=== PATIENT | male | born 1980 | race African-American/Black ===

== ENCOUNTER 2020-01-31 22:23 | Inpatient (IN) | payer SELFPAY ==
--- NOTE | ~2020-01-31 | XR_ITS ---
EXAMINATION: XR chest 1V portable EXAM DATE: 01/31/2020 23:39 INDICATION: Transient alteration of awareness. TECHNIQUE: Portable AP frontal chest x-ray was obtained. There is no prior study for comparison. FINDINGS: The lungs are clear. There are no pleural effusions. Cardiac silhouette is prominent but magnified on this AP technique. There is no pneumothorax suspected. The bones and soft tissues are unremarkable. IMPRESSION: No acute cardiopulmonary findings. Reviewed, dictated and finalized at location A.
--- NOTE | ~2020-01-31 | XR_ITS ---
EXAMINATION: XR abdomen NG/feed tube insert DATE: 02/01/2020 02:16 INDICATION: Nasogastric tube placement. TECHNIQUE: A supine view of the abdomen on 2 radiographs was obtained. COMPARISON: None. FINDINGS: There are no dilated loops of bowel. The nasogastric tube tip is in the stomach. IMPRESSION: 1. Nasogastric tube tip in the stomach. Reviewed, dictated and finalized at location A.
--- NOTE | ~2020-01-31 | CT_ITS ---
EXAMINATION: CT brain wo con DATE: 02/01/2020 00:36 INDICATION: Altered mental status. TECHNIQUE: Computed tomography (CT) of the head was performed without intravenous contrast. The mA wa s adjusted according to patient size. Iterative reconstruction technique was employed. The dose-lengt h product was 605.33 mGy-cm. COMPARISON: None FINDINGS: There is no intracranial hemorrhage, acute infarction, or abnormal intracranial mass lesion . The ventricles are normal in size. There is anteroposterior elongation of left ocular globe. There are likely changes of ocular lens replacement surgeries. There is mild mucosal thickening in the para nasal sinuses. The mastoid air cells are normal. IMPRESSION: 1. Normal brain. Reviewed, dictated and finalized at location A. IMPRESSION: 1. Normal brain.
--- NOTE | ~2020-01-31 | XR_ITS ---
EXAMINATION: XR chest ET placement DATE: 02/01/2020 01:27 INDICATION: Intubation. TECHNIQUE: A single frontal view of the chest was obtained. COMPARISON: Chest single view 01/31/2020 FINDINGS: The chest demonstrates clear lungs without pneumonia, pleural effusion, or pneumothorax. Th e heart size is normal. The endotracheal tube tip is 1.9 cm above the nehemiah. IMPRESSION: 1. No acute cardiopulmonary disease. Reviewed, dictated and finalized at location A.
[2020-01-31 22:18] VITALS: BP 119/54; PULSE 143; RESP 21; TEMP 36.6; O2SAT 75
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
[2020-01-31 22:37] VITALS: BP 119/54; PULSE 119; RESP 20; O2SAT 97
--- NOTE | 2020-01-31 22:48 | ECG_ITS ---
Measurements Intervals [place] Rate: 113 P: 69 MI: 195 QRS: 70 QRSD: 102 T: 58 QT: 334 QTc: 459 Interpretive Statements SINUS TACHYCARDIA FREQUENT VENTRICULAR PREMATURE COMPLEXES ABNORMAL ECG Electronically Signed On 02-01-2020 7:12:28 CDT by Martir Voss D.O.
[2020-01-31 23:07] LABS: Basophils Absolute Auto 0.1 K/mm3 (0.0-0.1); Basophils Percent Auto 0.4 % (0.2-1.2); Eosinophils Absolute Auto 0.1 K/mm3 (0-0.3); Eosinophils Percent Auto 0.6 % (0-4.4); Hematocrit 42.1 % (42.0-52.0); Hemoglobin 13.4 g/dL (14.0-18.0); Immature Granulocyte Absolute 0.06 K/mm3 (0.00-0.031); Immature Granulocyte Percent A 0.4 % (0-0.5); Lymphocytes Absolute Auto 3.76 K/mm3 (0.9-3.2); Lymphocytes Percent Auto 26.9 % (18.3-44.2); Mean Corpuscular HGB Conc 31.8 g/dl (32-36); Mean Corpuscular Hemoglobin 34.2 pg (26-34); Mean Corpuscular Volume 107.4 fl (80-100); Mean Platelet Volume 9.5 fl (7.4-10.4); Monocytes Absolute Auto 1.1 K/mm3 (0.1-0.6); Neutrophils Absolute Auto 8.9 K/mm3 (1.3-6.7); Neutrophils Percent Auto 63.7 % (45.5-73.1); Platelet Count Result 270 k/mm3 (150-375); Red Blood Count 3.92 M/mm3 (4.6-6.20); Red Cell Distribution Width 11.8 % (11.5-14.5)
[2020-01-31] MEDS: SODIUM CHLORIDE 0.9% IV 1,000 ML 999 ML IV CONT (23:10)
[2020-01-31] MEDS: LORAZEPAM INJ 2 MG/ML VIAL 1 MG IV PUSH ×2 (23:11→23:37)
--- NOTE | 2020-01-31 23:13 | PC.NURSE ---
Attempted to go to CT with patient, patient was resting on the bed. As soon as stretcher entered the hallway, patient jumped up, and started to violently thrash again. PD still at bedside, PD assisting with patient. Patient uncooperative. Patient brought back into the room.
[2020-01-31 23:21] LABS: Alveolar/Arterial O2 Gradient 402.8 mmHg; Base Excess ABG -5.2 mEq/l (+/-2.0); Fractional Inspired Oxygen 80 %; HCO3 ABG 23.5 mEq/l (22.0-26.0); Oxygen Content ABG 18.7 %vol (16.0-22.0); Oxygen Saturation ABG 96.7 % (95.0-100.0); Oxyhemoglobin 92.2 % THb (90.0-100.0); PCO2 ABG 59.1 mmHg (35.0-45.0); PO2 ABG 105.6 mmHg (80.0-100.0); PO2 FiO2 Ratio Arterial Blood 1.32 %; Total Hemoglobin 14.3 g/dL (12.0-18.0)
[2020-01-31 23:22] LABS: pH ABG 7.217 (7.350-7.450)
[2020-01-31 23:23] LABS: Device SIMPLE MASK; Modified Allen's Test Pass; Site Drawn LEFT RADIAL
[2020-01-31 23:27] LABS: Alanine Aminotransferase 18 U/L (4-50); Albumin Level 4.5 g/dL (3.5-5.1); Alkaline Phosphatase 58 U/L (38-126); Aspartate Amino Transferase 36 U/L (17-59); Bilirubin,Total 0.5 mg/dL (0.2-1.3); Blood Urea Nitrogen 14 mg/dL (9-20); Calcium 9.3 mg/dL (8.4-10.2); Carbon Dioxide 23 mmol/L (22-30); Chloride 107 mmol/L (98-107); Creatine Kinase 276 U/L (55-170); Estimated Glomerular Filt Rate 59; Glucose 151 mg/dL (75-110); Potassium 3.7 mmol/L (3.4-5.0); Sodium 143 mmol/L (137-145)
[2020-01-31 23:37] LABS: Acetaminophen < 10 ug/mL (10-30); Ethanol < 10 mg/dL (<10); Magnesium 1.9 mg/dL (1.6-2.3); Salicylate < 1.0 mg/dL (2-20)
[2020-01-31 23:44] LABS: Glucose Point of Care 165 (65-105)
[2020-01-31 23:50] VITALS: PULSE 113; RESP 12; O2SAT 98
[2020-02-01] VITALS (30 sets, daily range): BP systolic 85–125; BP diastolic 51–83; PULSE 50–156; RESP 11–20; TEMP 36.4–36.9; O2SAT 92–100; BMI 29.2
[2020-02-01 00:13] LABS: Amphetamine Screen Urine Negative (Negative); Barbiturate Screen Urine Negative (Negative); Benzodiazepines Screen Urine Negative (Negative); Cannabinoid Screen Urine Negative (Negative); Cocaine Screen Urine Negative (Negative); Methadone Screen Urine Negative (Negative); Opiate Screen Urine Negative (Negative); Phencyclidine Screen Urine Negative (Negative)
[2020-02-01 00:15] LABS: Add Urine Microscopic? YES; Appearance Urine Clear (Clear); Bacteria Urine Trace /hpf; Bilirubin Urine Negative (Negative); Blood Urine Negative (Negative); Color Urine Yellow (Yellow); Glucose Urine UA Negative (Negative); Ketones Urine Negative (Negative); Leukocyte Esterase Ur Negative LEU/UL (Negative); Mucus Urine Heavy /lpf; Nitrate Urine Negative (Negative); Protein Urine 2+ mg/dL (Negative); RBC Urine 0-2 /hpf (0-2); Specific Grav Ur 1.028 (1.001-1.035); Squamous Epithelial Cell Urine Occasional /hpf (Few)
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
[2020-02-01] MEDS: levETIRAcetam 1000MG/NACL100ML 1,000 MG/100 ML BAG 400 MG IVPB (00:41)
[2020-02-01] MEDS: SODIUM CHLORIDE 0.9% IV 1,000 ML 999 ML IV CONT (00:42)
[2020-02-01 01:04] LABS: Alveolar/Arterial O2 Gradient 176.4 mmHg; Base Excess ABG -2.7 mEq/l (+/-2.0); Fractional Inspired Oxygen 46 %; Oxygen Content ABG 17.1 %vol (16.0-22.0); Oxygen Saturation ABG 93.4 % (95.0-100.0); Oxyhemoglobin 90.2 % THb (90.0-100.0); PO2 ABG 80.2 mmHg (80.0-100.0); PO2 FiO2 Ratio Arterial Blood 1.74 %; Total Hemoglobin 13.4 g/dL (12.0-18.0)
--- NOTE | 2020-02-01 01:05 | PC.NURSE ---
EDP states he will intubate patient. Respiratory at bedside. 09120xt of Etomidate given IVP. 0112 100mg of Succ.s given IVP. 0113 Patient intubated with an 8 tube by EDP secured at 26 at the lip. Verified by positive color change and chest rise and fall. Chest xray ordered as well. 0115 VORB per EDP. start diprovan drip at 5ml/hr.
[2020-02-01 01:27] LABS: Modified Allen's Test Unable to perform; PCO2 ABG 62.9 mmHg (35.0-45.0); Site Drawn LEFT RADIAL; pH ABG 7.234 (7.350-7.450)
[2020-02-01 01:28] LABS: Device NASAL CANNULA
[2020-02-01] MEDS: PROPOFOL IV EMULSION 100 ML 5 MG IV CONT (01:30)
--- NOTE | 2020-02-01 02:10 | PC.NURSE ---
This patient, Juarez Cueto, was admitted to Intensive Care Unit-8. Patient/family oriented to hospital policies and general routines including ID bracelet, bed and alarms, visiting hours, pain management, procedures, bathroom and other care routines, personal items, smoking policy, room service/diet, and visiting hours. Valuables list has been completed. Information on how to activate the Rapid Response Team has been discussed. Patient/Family are encouraged to report perceived risks to care and to ask questions if they do not understand what they are told or what they should do.
--- NOTE | 2020-02-01 02:15 | PC.NURSE ---
Patient was transferred to the [facility], ICU room 8, by this RN and another RN as well as respiratory. Patient was transferred in hard violent restraints per request of EDP . Patient was released from locked restraints and transferred to the other stretcher. The nurses taking report placed patient in soft restraints.
--- NOTE | 2020-02-01 02:33 | PCRCNOTE ---
PT TRANSPORTED FROM ED TO ICU 8 VIA BVM/ETT. NO ADVERSE EVENTS NOTED. PLACED BACK ON VENT WITH ORDERED SETTINGS. SEE VENT DOCUMENTATION
[2020-02-01] MEDS: SODIUM CHLORIDE 0.9% IV 1,000 ML 125 ML IV CONT ×2 (02:55→08:32)
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
[2020-02-01] MEDS: MIDAZOLAM HCL 50 MG in DEXTROSE 5% 90 ML IV CONT (03:12)
[2020-02-01 04:40] LABS: Alveolar/Arterial O2 Gradient 168.5 mmHg; Base Excess ABG -3.2 mEq/l (+/-2.0); Fractional Inspired Oxygen 50 %; HCO3 ABG 23.8 mEq/l (22.0-26.0); Oxygen Content ABG 18.1 %vol (16.0-22.0); Oxygen Saturation ABG 98.3 % (95.0-100.0); Oxyhemoglobin 96.5 % THb (90.0-100.0); PCO2 ABG 50.8 mmHg (35.0-45.0); PO2 ABG 130.9 mmHg (80.0-100.0); PO2 FiO2 Ratio Arterial Blood 2.62 %; Total Hemoglobin 13.2 g/dL (12.0-18.0)
[2020-02-01 04:41] LABS: pH ABG 7.289 (7.350-7.450)
[2020-02-01 04:42] LABS: Device VENTILATOR; Modified Allen's Test Pass; Site Drawn LEFT RADIAL
[2020-02-01 04:43] LABS: Arterial Blood Gas PEEP 5 cmH2O; Arterial Blood Gas Tidal Volume 380 ml; Arterial Blood Gas Vent Mode CMV; Arterial Blood Gas Ventilator rate 20 /MIN
[2020-02-01 04:56] LABS: Hemoglobin A1C 4.6 % (<5.7)
[2020-02-01 05:00] LABS: Magnesium 1.8 mg/dL (1.6-2.3); Phosphorus 4.5 mg/dL (2.5-4.5)
[2020-02-01] MEDS: PROPOFOL IV EMULSION 100 ML 28.5 MG IV CONT ×2 (05:25→07:13)
[2020-02-01 05:28] LABS: Blood Urea Nitrogen 14 mg/dL (9-20); Calcium 8.5 mg/dL (8.4-10.2); Carbon Dioxide 24 mmol/L (22-30); Chloride 111 mmol/L (98-107); Estimated CRCL calculation 73 ml/min; Estimated Glomerular Filt Rate > 60; Glucose 83 mg/dL (75-110); Magnesium 1.7 mg/dL (1.6-2.3); Potassium 4.2 mmol/L (3.4-5.0); Sodium 141 mmol/L (137-145)
[2020-02-01 05:35] LABS: Basophils Absolute Auto 0.1 K/mm3 (0.0-0.1); Basophils Percent Auto 0.2 % (0.2-1.2); Eosinophils Percent Auto 0.1 % (0-4.4); Hematocrit 37.8 % (42.0-52.0); Hemoglobin 12.2 g/dL (14.0-18.0); Immature Granulocyte Absolute 0.15 K/mm3 (0.00-0.031); Immature Granulocyte Percent A 0.6 % (0-0.5); Lymphocytes Absolute Auto 2.24 K/mm3 (0.9-3.2); Lymphocytes Percent Auto 9.3 % (18.3-44.2); Mean Corpuscular HGB Conc 32.3 g/dl (32-36); Mean Corpuscular Hemoglobin 34.1 pg (26-34); Mean Corpuscular Volume 105.6 fl (80-100); Mean Platelet Volume 10.1 fl (7.4-10.4); Monocytes Absolute Auto 1.5 K/mm3 (0.1-0.6); Monocytes Percent Auto 6.4 % (2.6-8.5); Neutrophils Absolute Auto 20.2 K/mm3 (1.3-6.7); Neutrophils Percent Auto 83.4 % (45.5-73.1); Platelet Count Result 232 k/mm3 (150-375); Red Blood Count 3.58 M/mm3 (4.6-6.20); Red Cell Distribution Width 11.8 % (11.5-14.5); White Blood Count 24.2 K/mm3 (4.5-10.0)
[2020-02-01 06:35] LABS: Folic Acid 18.7 ng/mL (2.76->20)
[2020-02-01 07:02] LABS: Free T4 Free Thyroxine Reflex 0.77 ng/dL (0.78-2.19)
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
--- NOTE | 2020-02-01 11:06 | PM.IMPN ---
Progress Note: A&P Assessment and Plan (1) Encephalopathy acute: Code(s): G93.40 - Encephalopathy, unspecified Status: Acute Assessment and Plan: Etiology unclear: withdrawal vs atypical seizure Psychosis possible with respiratory failure possible due to meds Levetiracetam begun 01/30 Continue to support and wean as possible (2) Acute hypercapnic respiratory failure: Code(s): J96.02 - Acute respiratory failure with hypercapnia Status: Acute Assessment and Plan: Due to underlying medical condition vs medication Continue to support on vent and wean as possible (3) Hyperglycemia: Code(s): R73.9 - Hyperglycemia, unspecified Status: Acute Assessment and Plan: Stress, steroids Initiate SSI if glucose continues to rise (4) Hypothyroidism: Qualifiers: Hypothyroidism type: unspecified Qualified Code(s): E03.9 - Hypothyroidism, unspecified Code(s): E03.9 - Hypothyroidism, unspecified Status: Acute Assessment and Plan: TSH 8.8, FT4 0.77 Early hypothyroidism vs sick euthyroid No intervention required Will need f/u once (5) Leukocytosis: Qualifiers: Leukocytosis type: unspecified Qualified Code(s): D72.829 - Elevated white blood cell count, unspecified Code(s): D72.829 - Elevated white blood cell count, unspecified Status: Acute Assessment and Plan: Likely demargination F/u lab Subjective Date/time seen: 02/01/20 11:06 Interval history: Admitted January 30 due to abnormal behaviors and confusion. Sedated and ventilated. Review of Systems Review of Systems: ROS unobtainable: Yes unobtainable due to endotracheal tube Exam Narrative: Exam Narrative: HEENT: Pupils small and sluggish. Sclerae nonicteric, pharyngeal mucosa pink and intact NECK: No JVD CHEST: Clear to auscultation. HEART: NL S1/S2, regular, no murmur ABDOMEN: BS+, soft, nontender, no mass, no bruits EXTREMITIES: No cyanosis, edema, or clubbing NEUROLOGIC: CN intact and symmetric to inspection. MUSCULOSKELETAL: Tone and strength symmetric. PSYCH: Sedated Objective Data Vital Signs Vital Signs: Vital Signs - 24 hr 01/31/20 22:18 01/31/20 22:37 01/31/20 23:50 Temperature 97.9 F Pulse Rate 143 H 119 H 113 H Respiratory Rate 21 H 20 12 Blood Pressure 119/54 L 119/54 L Pulse Oximetry 75 L 97 98 02/01/20 00:00 02/01/20 00:41 02/01/20 00:45 Temperature Pulse Rate 116 H 124 H 156 H Respiratory Rate 11 L 15 16 Blood Pressure Pulse Oximetry 98 94 02/01/20 01:10 02/01/20 01:54 02/01/20 02:07 Temperature 97.8 F 97.8 F Pulse Rate 99 103 H 99 Respiratory Rate 15 15 Blood Pressure 91/51 L 96/56 L Pulse Oximetry 100 100 100 02/01/20 02:11 02/01/20 02:15 02/01/20 02:20 Temperature 97.6 F Pulse Rate 99 97 94 Respiratory Rate 20 16 Blood Pressure 99/54 L 98/60 L Pulse Oximetry 99 99 02/01/20 02:36 02/01/20 04:00 02/01/20 04:45 Temperature 98.1 F Pulse Rate 95 90 90 Respiratory Rate 20 Blood Pressure 113/80 Pulse Oximetry 99 98 98 02/01/20 06:00 02/01/20 08:00 Temperature 98 F Pulse Rate 78 70 Respiratory Rate 16 Blood Pressure 92/56 L 86/55 L Pulse Oximetry 94 96 Intake/Output Intake/Output: Intake & Output 01/29/20 01/30/20 01/31/20 02/01/20 23:59 23:59 23:59 23:59 Intake Total 3334 Output Total 200 550 Balance -200 2784 Meds/Results Medications: Active Medications Generic Name Dose Route Start Last Admin Trade Name Freq PRN Reason Stop Dose Admin Sodium Chloride 1,000 mls @ 125 mls/hr 02/01/20 01:00 02/01/20 08:32 Normal Saline Iv IV CONT 125 mls/hr .Q8H LIZZY Administration Levetiracetam 500 mg in 100 mls @ 400 mls/hr 02/01/20 13:00 Keppra Iv IVPB Q12HR LIZZY Midazolam HCl 50 mg/ Dextrose 100 mls @ 6 mls/hr 02/01/20 02:50 02/01/20 05:27 IV CONT 3 mg/hr .[id number] LIZZY 6 mls/hr Titration Protocol
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
[2020-02-01] MEDS: PROPOFOL IV EMULSION 100 ML 22.8 MG IV CONT (11:14)
[2020-02-01] MEDS: levETIRAcetam 500MG/NACL 100ML 500 MG/100 ML BAG 200 MG IVPB (12:40)
[2020-02-01] MEDS: methylPREDNISolone SOD SUCC 125 MG VIAL 80 MG IV PUSH ×2 (12:41→23:24)
--- NOTE | 2020-02-01 13:17 | PC.NURSE ---
Dr. Monet in room, pt following most of doctor's requests, pt extubated at this time, placed on nasal canula
--- NOTE | 2020-02-01 13:18 | PM.EVENT ---
Event Note Event Note Event Note: Sedation holiday was done. Patient was following commands and moving all extremity patient was transiently placed on pressure support. Patient was fighting the ventilator and getting agitated. His ventilator requirements are minimal and chest x-ray was unremarkable this morning. Most of his agitation appear to be secondary to being intubated. We decided to extubate the patient at that time. Patient extubated and placed on nasal cannula, off sedation and is saturating well on nasal cannula at this time. Continue monitor closely. Patient is following commands and answering questions although he is still drowsy likely from the sedatives.
[2020-02-01] MEDS: IPRATROPIUM BR 0.02% INH SOLN 0.5 MG/2.5 ML VIAL INHALATION (13:46)
[2020-02-01] MEDS: ALBUTEROL SULFATE NEB 2.5 MG/0.5 ML INH INHALATION ×2 (13:46→19:50)
[2020-02-01] MEDS: SODIUM CHLORIDE 0.45% 1,000 ML 75 ML IV CONT (17:59)
[2020-02-01] MEDS: FAMOTIDINE 20 MG TABLET PO (21:28)
--- NOTE | 2020-02-01 21:41 | PM.DS ---
DS: Diagnosis Admitting Diagnosis Admitting Diagnosis: Acute respiratory failure with hypercapnia DS: Summary Hospital Course Reason for hospitalization: seizure Hospital Course: Admitted 01/30, discharged 02/02/20. he was last seen normal when he showed up to work at [employer] around 6 p.m on 01/30. Later on during 15 minutes break, he was eventually found splashing water on his face and punching the floor around 9:15 p.m. Police arrived to the scene, subdued the patient. He was doing the same thing when arrived to the scene. In the emergency room, he received 5 mg of Haldol at 0954 and 5 mg of Valium at 0955, and was being restrained by the police and EMS. Other information was unavailable. Subsequently, the physician was informed by the nursing staff that he does not have any history of seizure, but is a chronic heroin abuser. He recevied IV Keppra 1,000mg then 500mg every 12 hours. He required intubatio and was extubated 01/31 in the afternoon. He remained alert and oriented and did admit to a hx of seizures. He was concerned about medication cost as his insurance would not be active for another 2 months. However, we found generic Keppra at [facility] for $9 per month. Time Spent with Patient Time attestation: Total time spent providing and/or coordinating discharge services: 35 min Exam Narrative: Exam Narrative: HEENT: EOMI, PERRL, pharyngeal mucosa pink and intact NECK: No JVD CHEST: Clear to auscultation. Normal effort. HEART: NL S1/S2, regular, no murmur ABDOMEN: BS+, soft, nontender, no mass, no bruits EXTREMITIES: No cyanosis, edema, or clubbing NEUROLOGIC: CN intact and symmetric to inspection. MUSCULOSKELETAL: Tone and strength symmetric. PSYCH: Alert. Oriented to person, place, and time. DS: Data Data Completed and Pending Labs on day of discharge: Labs from last 24 hours 02/01/20 02/01/20 02/01/20 04:31 04:26 04:26 WBC RBC Hgb Hct MCV MCH MCHC RDW Plt Count MPV Immature Gran % (Auto) Neut % (Auto) Lymph % (Auto) [place] % (Auto) Eos % (Auto) Baso % (Auto) Lymph # (Auto) [place] # (Auto) Eos # (Auto) Baso # (Auto) Abs Immat Gran (auto) Absolute Neuts (auto) Absolute Nucleated RBC Nucleated RBC % Puncture Site Left radial ABG pH 7.289 L* ABG pCO2 50.8 H ABG pO2 130.9 H ABG PO2/FiO2 Ratio 2.62 ABG HCO3 23.8 ABG O2 Saturation 98.3 ABG O2 Content 18.1 ABG Base Excess -3.2 A-a Gradient 168.5 Oxyhemoglobin 96.5 Total Hemoglobin 13.2 O2 Delivery Device Ventilator O2 Liters/Min Not Reportable Minute Volume Not Reportable Vent Rate 20 Vent Mode Cmv FiO2 50 Tidal Volume 380 PEEP 5 Peak Inspir Pressure Not Reportable Pressure Support Not Reportable Sodium Potassium Chloride Carbon Dioxide BUN Creatinine Estim Creat Clear Calc Estimated GFR Glucose POC Capillary Glucose Hemoglobin A1c Calcium Phosphorus Magnesium Total Bilirubin AST ALT Alkaline Phosphatase Total Creatine Kinase Total Protein Albumin Vitamin B12 Folate TSH (Reflex) 8.800 H Free T4 0.77 L Free T3 Urine Color Urine Appearance Urine pH Ur Specific [place] Urine Protein Urine Glucose (UA) Urine Ketones Ur Blood (Man) Urine Nitrate Urine Bilirubin Urine Urobilinogen Leukocyte Esterase Rfl Urine RBC Urine WBC Ur Squamous Epith Cells Urine Bacteria Hyaline Casts Urine Mucus Salicylates Urine Opiates Screen Urine Methadone Screen Acetaminophen Ur Barbiturates Screen Ur Phencyclidine Scrn Ur Amphetamine Screen U Benzodiazepines Scrn Urine Cocaine Screen U Cannabinoids Screen Ethyl Alcohol 02/01/20 02/01/20 02/01/20 04:26 04:26 04:17 WBC RBC Hgb Hct MCV MCH MCHC RDW Plt Count
[2020-02-01] MEDS: levETIRAcetam 500MG/NACL 100ML 500 MG/100 ML BAG 400 MG IVPB (23:25)
[2020-02-02] VITALS (9 sets, daily range): BP systolic 113–144; BP diastolic 70–84; PULSE 67–84; RESP 16–20; TEMP 36.4–37; O2SAT 95–98
[2020-02-02] MEDS: ALBUTEROL SULFATE NEB 2.5 MG/0.5 ML INH INHALATION ×2 (01:29→08:37)
--- NOTE | 2020-02-02 02:46 | PC.NURSE ---
02/01/20 AT 1930, PATIENT WANTING TO SIGN OUT AMA. DR DÍAZ NOTIFIED BY AUNDREA Rodrigues RN. PATIENT SPOKE TO HIS MOTHER ON THE PHONE AND HAS AGREED TO STAY UNTIL THE MORNING. STILL VERY UPSET OVER HIS PANTS BEING CUT OFF IN THE ER. QIESTIONED WHAT HAPPENED TO HIM. I ADVISED HIM THAT HE MIGHT OF HAD A SEIZURE WHEN FOUND AT WORK. PATIENT STATES HE HAS HAD 3 SEIZURES IN THE PAST YEARS. TEACHING DONE REGARDING CURRENT CARE PLAN. WILL CONTINUE TO FOLLOW.
[2020-02-02 04:49] LABS: Basophils Percent Auto 0.1 % (0.2-1.2); Hematocrit 39.6 % (42.0-52.0); Hemoglobin 12.7 g/dL (14.0-18.0); Immature Granulocyte Absolute 0.04 K/mm3 (0.00-0.031); Immature Granulocyte Percent A 0.3 % (0-0.5); Lymphocytes Absolute Auto 0.84 K/mm3 (0.9-3.2); Lymphocytes Percent Auto 6.6 % (18.3-44.2); Mean Corpuscular HGB Conc 32.1 g/dl (32-36); Mean Corpuscular Hemoglobin 34.1 pg (26-34); Mean Corpuscular Volume 106.5 fl (80-100); Mean Platelet Volume 9.8 fl (7.4-10.4); Monocytes Absolute Auto 0.1 K/mm3 (0.1-0.6); Monocytes Percent Auto 0.6 % (2.6-8.5); Neutrophils Absolute Auto 11.8 K/mm3 (1.3-6.7); Neutrophils Percent Auto 92.4 % (45.5-73.1); Platelet Count Result 213 k/mm3 (150-375); Red Blood Count 3.72 M/mm3 (4.6-6.20); Red Cell Distribution Width 11.6 % (11.5-14.5); White Blood Count 12.7 K/mm3 (4.5-10.0)
[2020-02-02 05:09] LABS: Alanine Aminotransferase 25 U/L (4-50); Albumin Level 4.1 g/dL (3.5-5.1); Alkaline Phosphatase 79 U/L (38-126); Aspartate Amino Transferase 84 U/L (17-59); Bilirubin,Total 0.4 mg/dL (0.2-1.3); Blood Urea Nitrogen 13 mg/dL (9-20); Calcium 9.2 mg/dL (8.4-10.2); Carbon Dioxide 23 mmol/L (22-30); Chloride 108 mmol/L (98-107); Estimated CRCL calculation 93 ml/min; Estimated Glomerular Filt Rate > 60; Glucose 109 mg/dL (75-110); Potassium 4.4 mmol/L (3.4-5.0); Sodium 139 mmol/L (137-145)
--- NOTE | 2020-02-02 07:45 | WPDINTPN ---
Progress Note: A&P Assessment and Plan (1) Acute hypercapnic respiratory failure: Code(s): J96.02 - Acute respiratory failure with hypercapnia Status: Acute Assessment and Plan: chest x-ray done today reviewed and shows No acute cardiopulmonary disease. Acute Respiratory failure secondary to encephalopathy improved and patient extubated yesterday. He he has been satting well on room air. Continue full mechanical ventilation support to prevent hypoxemia/hypercarbia and end organ damage. Continue Bronchodilators (2) Acute encephalopathy: Code(s): G93.40 - Encephalopathy, unspecified Status: Acute Assessment and Plan: Head CT negative at presentation ? secondary to heroin use versus seizure TSH elevated neurology consulted patient now alert and awake (3) Leukocytosis: Qualifiers: Leukocytosis type: unspecified Qualified Code(s): D72.829 - Elevated white blood cell count, unspecified Code(s): D72.829 - Elevated white blood cell count, unspecified Status: Acute Assessment and Plan: most likely stress response patient is afebrile levels are close to normal (4) Acute renal insufficiency: Code(s): N28.9 - Disorder of kidney and ureter, unspecified Status: Acute Assessment and Plan: creatinine has normalized with IV fluids (5) Hyperglycemia: Code(s): R73.9 - Hyperglycemia, unspecified Status: Acute Assessment and Plan: patient does not have history of diabetes monitor and treat as needed with sliding scale check HbA1c (6) Hypothyroidism: Qualifiers: Hypothyroidism type: unspecified Qualified Code(s): E03.9 - Hypothyroidism, unspecified Code(s): E03.9 - Hypothyroidism, unspecified Status: Acute Assessment and Plan: patient has elevated TSH and low free T4 pending free T3 level will discuss with Internal Medicine physician before initiating levothyroxine DVT prophylaxis - Lovenox Stress ulcer prophylaxis - Pepcid Nutrition - regular diet Code Status - Full Code patient will be transferred out of ICU today and he may leave against medical advice. Subjective Date/time seen: 02/02/20 0745 Yesterday patient was extubated after a sedation holiday. Was following commands on all 4 extremities and was not tolerating spontaneous breathing trial due to agitation and uncooperation. Patient did well overnight. He has been saturating well on room air. Apart from that patient has again been non cooperative with nursing staff and basically threatening to leave against medical advice all night. States that he is going to lose his job and he cannot stay in the hospital. He is aware that he may have seizure but he told me that his father had seizures 3 times a day and he did fine. And he does not want to stay in the hospital anymore. He is worried about losing his job. Overnight. Fonseca was removed due to patient's request which was appropriate. Patient is tolerating regular diet and IV fluids were discontinued. Patient otherwise denies any complaints he feels fine and and would like to go home. He answers no to everything each and every question when inquired about review of systems. He told me that he was in the class yesterday and his friends laughing at him for asking stupid questions. he does not remember what exactly happened and why he came to the hospital. He told me that he has history of seizure disorder but often does not admitted on the forms for job or school. He used to be on some medication the name of which he is unaware of but quit taking it a long time ago. He absolutely denied using any drugs to me prior to this incident Review of Systems Review of Systems: ROS unobtainable: Yes unobtainable due to mental status ( patient has no to all questions) Exam Narrative: Exam Narrative: General: Pt is alert awake and in NAD Lungs/Chest: Tra
[2020-02-02] MEDS: IPRATROPIUM BR 0.02% INH SOLN 0.5 MG/2.5 ML VIAL INHALATION (08:37)
--- NOTE | 2020-02-02 09:17 | PC.NURSE ---
pt discharged to home at 910 am, discharge instructions explained and signed
[2020-02-02 12:24] LABS: Triiodothyronine T3 Free 3.4 pg/mL (2.3-4.2)
== END 2020-02-02 09:10 | disposition home or self-care (01) | DRG 773 ==
LOC: ANHED 02-01 01:01 → ANHICU 02-01 01:09
PROVIDERS: Internal Medicine; Admitting Provider Family Medicine; Emergency Provider Emergency Medicine; Visit Provider Internal Medicine
DX: F11.23 Opioid dependence with withdrawal (principal); G40.909 Epilepsy, unspecified, not intractable, without status epilepticus; J96.02 Acute respiratory failure with hypercapnia; J45.909 Unspecified asthma, uncomplicated; F11.10 Opioid abuse, uncomplicated; G93.40 Encephalopathy, unspecified; R73.9 Hyperglycemia, unspecified; E03.9 Hypothyroidism, unspecified; D72.829 Elevated white blood cell count, unspecified; N28.9 Disorder of kidney and ureter, unspecified; F17.210 Nicotine dependence, cigarettes, uncomplicated; Z78.1 Physical restraint status
CPT/HCPCS: 31500; 36415; 36600; 51701; 70450; 71045; 80048; 80053; 80307; 81001; 82550; 82607; 82746; 82805; 82948; 83036; 83735; 84100; 84439; 84443; 84481; 85025; 93005; 94003; 94640; 96361; 96365; 96366; 96367; 96374; 96375; 99291; A9270; G0378; G0379; J0330; J1953; J2060; J2250; J2704; J2930; J3010; J7030; J7050